=== PATIENT | male | born 1995 | race African-American/Black ===

== ENCOUNTER 2019-12-05 18:55 | Emergency (ER) | payer BC ==
[~2019-12-05] VITALS: Ht 170.2 cm; Wt 71.7 kg
[2019-12-05] MEDS ORDERED: CHARCOAL ACTIVATED (WITHOUT SORBITOL) 50 G/240 ML BOTTLE PO ONE (19:00)
--- NOTE | 2019-12-05 19:00 | NUR ---
Patient bib ra83 and [employer] for overdose, possible SI. [employer] at bedside.
--- NOTE | 2019-12-05 19:00 | NUR ---
Dr. Sandoval at bedside for MSE.
--- NOTE | 2019-12-05 19:10 | NUR ---
Security at bedside with [employer] officers.
[2019-12-05] MEDS ORDERED: CHARCOAL ACTIVATED (WITHOUT SORBITOL) 50 G/240 ML BOTTLE ONE (19:15)
[2019-12-05] MEDS ORDERED: LAMO200T2 PO (19:30)
[2019-12-05] MEDS ORDERED: PALI3TAB PO (19:30)
[2019-12-05] MEDS ORDERED: OMEP20TA5 PO (19:30)
[2019-12-05] MEDS ORDERED: FLUO20CA42 PO (19:30)
[2019-12-05] MEDS ORDERED: ATOM25CA6 PO (19:30)
[2019-12-05] MEDS ORDERED: HYDR50TA62 PO (19:30)
[2019-12-05] MEDS ORDERED: TRAZ150T75 PO (19:30)
[2019-12-05 19:39] LABS: BASOPHILS % (AUTO) 0.5 % (0.0-2.0); EOSINOPHILS # (AUTO) 0.1 K/uL (0.0-0.7); EOSINOPHILS % (AUTO) 1.5 % (0.0-7.0); HEMATOCRIT 40.5 % (36.7-47.1); HEMOGLOBIN 13.4 g/dL (12.5-16.3); LYMPHOCYTES # (AUTO) 2.5 K/uL (20.0-40.0); LYMPHOCYTES % (AUTO) 39.1 % (20.5-51.5); MEAN CORPUSCULAR HEMOGLOBIN 27.8 uug (23.8-33.4); MEAN CORPUSCULAR HGB CONC 33 g/dL (32.5-36.3); MONOCYTES # (AUTO) 0.6 K/uL (2.0-10.0); MONOCYTES % (AUTO) 9.4 % (0.0-11.0); NEUTROPHILS # (AUTO) 3.2 K/uL (1.8-8.9); NEUTROPHILS % (AUTO) 49.5 % (38.5-71.5); PLATELET COUNT (AUTO) 208 K/uL (152-348); RED BLOOD CELL COUNT(AUTO) 4.82 MIL/uL (4.06-5.63); WHITE BLOOD COUNT (AUTO) 6.5 K/uL (3.6-10.2)
--- NOTE | 2019-12-05 19:40 | NUR ---
Received call from hKalida, patient's mother, speaking with Dr. Sandoval.
[2019-12-05 19:48] LABS: CARBON DIOXIDE 27 mmol/L (21-32); CHLORIDE 106 mmol/L (98-107); CREATININE 1.3 mg/dL (0.6-1.3); GLUCOSE 111 mg/dL (74-106); POTASSIUM 4.1 mmol/L (3.5-5.1); UREA NITROGEN, BLOOD 11 mg/dL (7-18)
[2019-12-05 19:53] LABS: ALANINE AMINOTRANSFERASE 37 U/L (16-63); ALKALINE PHOSPHATASE 74 U/L (50-136); ASPARTATE AMINOTRANSFERASE 23 U/L (15-37); BILIRUBIN,DIRECT 0.1 mg/dL (0.0-0.2); BILIRUBIN,TOTAL 0.3 mg/dL (0.2-1.0); TOTAL PROTEIN, SERUM 7.5 g/dL (6.4-8.2)
[2019-12-05 19:55] LABS: ACETAMINOPHEN < 2.0 ug/mL (10-30)
[2019-12-05 19:57] LABS: ETHANOL < 3 MG/DL (0-0)
--- NOTE | 2019-12-05 20:00 | NUR ---
Medically cleared by DR Sandoval. Called Triny Lyons from [facility]. ETA 30mins.
--- NOTE | 2019-12-05 20:20 | NUR ---
[facility]IE[facility] PET team arrived to ER for pt psych eval.
--- NOTE | 2019-12-05 22:21 | NUR ---
Patient provided urine sample, sent to lab.
--- NOTE | 2019-12-05 22:25 | NUR ---
Kar Bennett LVN at bedside for 1:1 sitter.
[2019-12-05 22:46] LABS: *AMPHETAMINE, URINE NEGATIVE (NEGATIVE); *BARBITURATE, URINE NEGATIVE (NEGATIVE); *CANNABINOID, URINE NEGATIVE (NEGATIVE); *COCCAINE, URINE NEGATIVE (NEGATIVE); *OPIATE, URINE NEGATIVE (NEGATIVE); *PHENCYCLIDINE SCREEN,URINE NEGATIVE (NEGATIVE)
--- NOTE | 2019-12-05 23:03 | NUR ---
Called Triny Lyons RN PET, updated on patient urine drug screen results, states she will call [facility] for a follow up.
--- NOTE | 2019-12-05 23:17 | NUR ---
Received call from Ashley from [facility]. Patient accepted by Emilee Chavez MD, patient going to [address], Room 220. Number to report to ext [phone].
--- NOTE | 2019-12-05 23:43 | NUR ---
[facility] called back with change of room number, patient going to [facility] room 407 A, Number to report to [phone] ext. [phone].
--- NOTE | 2019-12-05 23:48 | NUR ---
Called [facility] for transport, eta ~2-3am and trip#[id number]
--- NOTE | 2019-12-06 00:52 | NUR ---
Received call from reji Miguel 45 min. ~[phone]
--- NOTE | 2019-12-06 01:05 | NUR ---
Report given to Tari project controller Nurse of [facility].
--- NOTE | 2019-12-06 01:25 | NUR ---
[facility] arrived to ER to transport patient to [facility]. Report and documentation given to EMT.
== END 2019-12-06 01:35 ==
LOC: ER 18:58
DX: T43.212A Poisoning by selective serotonin and norepinephrine reuptake inhibitors, intentional self-harm, initial encounter (principal); Y92.099 Unspecified place in other non-institutional residence as the place of occurrence of the external cause; F17.210 Nicotine dependence, cigarettes, uncomplicated; Z81.8 Family history of other mental and behavioral disorders; R94.31 Abnormal electrocardiogram [ECG] [EKG]
CPT/HCPCS: 36415; 80048; 80076; 80307 ×2; 80329; 85025; 93005; 99285; 99406; G0480; C1758